=== PATIENT | male | born 1995 | race Caucasian/White ===

== ENCOUNTER 2016-10-27 07:33 | Emergency (ER) | payer OTHER ==
[~2016-10-27] VITALS: Ht 177.8 cm; Wt 92.3 kg
[2016-10-27 07:36] VITALS: TEMP 36.9; Ht 177.8 cm; Wt 92.3 kg
[2016-10-27] MEDS ORDERED: SERT50TA PO (07:47)
--- NOTE | 2016-10-27 08:30 | DIAGNOSTIC IMAGING REPORT ---
LEFT ELBOW MIN 3 VIEWS ROUTINE CLINICAL HISTORY: Left elbow pain status post trauma COMPARISON: None. DISCUSSION: There is a hemarthrosis at the level of the elbow. There is radial head subluxation. There is 14 possibly due to intra-articular fracture fragments measuring 21 mm. These may arise from the capitellum. CT scanning may be necessary for more accurate evaluation. IMPRESSION: Acute fracture subluxation. There is one and possibly 2 intra-articular fragments measuring 21 mm, likely arising from the capitellum. The radial head is subluxed. Additional imaging might be considered for further fracture evaluation. Electronically signed by: Jovanni Dempsey M.D. 10/27/2016 8:28 AM Dictated Date/Time: 10/27/2016 8:24 AM
--- NOTE | 2016-10-27 08:32 | DIAGNOSTIC IMAGING REPORT ---
LEFT FOREARM 2 VIEWS ROUTINE CLINICAL HISTORY: Left forearm pain status post trauma COMPARISON: Elbow study performed the same day DISCUSSION: There is a fracture at the level of the elbow with intra-articular fragments possibly arising from the capitellum. No ulnar fractures are visualized. No mid or distal radial fractures are visualized. IMPRESSION: Acute fracture at the elbow with fracture fragments possibly arising from the capitellum. Suspected minimal radial head subluxation. Electronically signed by: Jovanni Dempsey M.D. 10/27/2016 8:31 AM Dictated Date/Time: 10/27/2016 8:29 AM
--- NOTE | 2016-10-27 09:12 | DIAGNOSTIC IMAGING REPORT ---
CT LEFT ELBOW NO CONTRAST CT DOSE: 616.52 mGy.cm CLINICAL HISTORY: Left elbow pain status post trauma. Abnormal conventional radiographic study. TECHNIQUE: Helical images were acquired in the transverse plane. Multiplane are reformatted images were acquired. COMPARISON STUDY: Conventional radiographic study dated 10/27/2016 FINDINGS: There is a lipoma hemarthrosis. No radial head fracture is visualized. No ulnar fracture is visualized. There are tiny gas droplets present within the joint. There is an acute mildly comminuted fracture of the capitellum which is rotated 90 degrees. The major capitellar fragment measures 3 cm. There is no ulnar dislocation. Proximal radial ulnar relationship remains normal. IMPRESSION: 1. Mildly comminuted fracture of the capitellum which is anteriorly displaced and rotated 90 degrees. The major capitellar fragment measures 3 cm. 2. No evidence of dislocation. 3. No radial head or olecranon fracture is visualized Electronically signed by: Jovanni Dempsey M.D. 10/27/2016 9:10 AM Dictated Date/Time: 10/27/2016 9:04 AM
[2016-10-27] MEDS ORDERED: HYDR-5688 PO (09:53)
[2016-10-27 10:52] VITALS: BP 139/92; PULSE 78; O2SAT 96
--- NOTE | 2016-10-27 18:09 | EMERGENCY ROOM VISIT NOTE ---
ED Visit Note First contact with patient: 07:38 Chief Complaint: Left arm pain. History of Present Illness: Mr. Thomas is a 21-year-old white male who ambulates into the ED accompanied by male friend complaining of left elbow and forearm pain. Patient reports approximately one hour ago he was walking down the stairs in his house and slipped on a police of clothing and fell down 4 stairs onto his left elbow and forearm. Since that time he reports he has been having left elbow and forearm pain. He reports before the fall there was no lightheadedness or dizziness and at the time of the fall he had no loss of consciousness. Since the fall he has had no headache, dizziness, lightheadedness, abnormal neurological symptoms or other signs of head injury. Currently he describes his pain as a sharp discomfort. He rates his discomfort x/10. Pain is nonradiating. His pain worsens with flexion and extension of the elbow and pronation and supination of the forearm. He has not identified any alleviating factors related to the pain. He does report he has used ice and 400 mg of ibuprofen with minimal relief of his discomfort. Associated with his pain he reports she's having some paresthesias in the lower forearm and hand. Additionally he denies neck pain, back pain, chest pain, shortness of breath, abdominal pain, previous significant injuries to the elbow or forearm. Review of Systems: As noted above in history of present illness. 8 body systems were reviewed and found to be negative as noted above. Past Medical History: Patient denies. Current Medications: Zoloft. Allergies to Medications: Patient denies. Social History: Patient is University student; he feels safe in his home environment; he admits to tobacco use; he admits to alcohol use. Physical Examination: Vital Signs: Date Time Temp Pulse Resp B/P Pulse Ox O2 Delivery O2 Flow Rate FiO2 10/27/16 10:52 78 16 139/92 96 10/27/16 09:36 88 16 129/76 98 Room Air 10/27/16 07:36 36.9 100 18 145/86 97 Room Air GENERAL: 21-year-old male in moderate distress due to pain, nontoxic-appearing, afebrile and hemodynamically stable. NEUROLOGICAL: Awake, alert and oriented to person, place and time. Answering questions appropriately and following commands. Normal gait. SKIN: Warm, dry and pink. No soft tissue trauma noted. HEENT: Atraumatic and normocephalic. BACK: No tenderness over the bony cervical and thoracic spine. THORAX: Lungs sounds are clear to auscultation and equal bilaterally with symmetrical chest wall. ABDOMEN: Flat, soft and nontender. Positive bowel sounds in all quadrants. No guarding, rigidity or organomegaly. LEFT UPPER EXTREMITY: No gross bony deformity. No tenderness in the shoulder or forearm. Moderate tenderness over the proximal radius and ulna without bony deformity or crepitus. No tenderness in the wrist or hand. He refuses to do range of motion exercises at the forearm and elbow due to pain. He was able to flex, extend and radial and ulnar deviate his wrist against resistance. He was able to move all fingers against resistance. Throughout the hand skin was warm and pink and capillary refill is brisk. Distal pulses and sensations were intact and equal bilaterally. ED Course Patient is assessed as noted above. Left Elbow X-Rays: Was read by myself and the radiologist showing a comminuted fracture subluxation of the capitulum with radial head subluxation and a hemarthrosis. Radiologist recommends CT for further fracture evaluation. Left Forearm X-Rays: Was read by myself and the radiologist showing the same fractures noted above but no distal radial fractures noted. Left Elbow CT: Was reviewed by myself and read by the radiologist showing mildly comminuted fracture of the [place] along with anterior displacement and rotation of 90 with no evidence of dislocation or radial head or electrolyte fractures Patient is given ice for pain and comfort; he refused pain medications. At the patient's request I did speak to his mother multiple times about the fracture and the treatment plan; he reports he wanted to stay in a [place] area of for repair and she was a nurse torch straightener for an orthopedic group in [place] and wanted him to be seen in [place]. Patient was [facility]; he recommended office follow-up with surgical treatment by rodrigue. Patient was placed in a posterior elbow splint in 90 with Ortho-Glass and then into a sling. On reevaluation patient decided to be seen in [place] for surgical evaluation and care; he was discharged with CD copies of his x-rays and CT scan. Patient was educated about tonight's findings and instructed on his treatment plan; he verbalizes understanding and agreement with this plan. Clinical Impression: Comminuted fracture of the left capitulum. Status post fall. Disposition: Patient discharged home in stable condition accompanied by male friend; prior to departure he was reassessed and subjectively reported he was pain-free. Plan: Comfort measures were discussed with the patient including a sliding pain medication scale of acetaminophen and [place], ice and splint use and rest. Patient was encouraged to follow-up with orthopedics on Saturday for definitive care and treatment. Patient was encouraged return ED for worsening/uncontrolled pain, uncontrolled swelling, arm/hand weakness/numbness/tingling or any new/concerning symptoms.
== END 2016-10-27 10:53 | disposition home or self-care (01) ==
LOC: C.EDB 07:36
DX: S52.125A Nondisplaced fracture of head of left radius, initial encounter for closed fracture (principal); W10.9XXA Fall (on) (from) unspecified stairs and steps, initial encounter; F17.200 Nicotine dependence, unspecified, uncomplicated